=== PATIENT | female | born 1975 | race Two or more races ===

== ENCOUNTER 2019-05-01 06:45 | Day surgery (SDC) | payer BC ==
[2019-04-30 11:32] VITALS: BP 98/66
[~2019-05-01] VITALS: Ht 160 cm; Wt 63.0 kg
[~2019-05-01 06:45] MED LIST: ALPR2TAB5 PO; CYCL-259 PO; METR-90 PO; NAPR-685 PO; SERT100T32 PO; TERC20CR TP; TRAZ150T62 PO
[2019-05-01] MEDS ORDERED: LACTATED RINGERS 1,000 ML IV SCH (07:18)
[2019-05-01 07:20] VITALS: BP 98/66
[2019-05-01 07:28] LABS: HCG UR SG 1.019 (1.003-1.030)
[2019-05-01] MEDS ORDERED: FENTANYL PF 250 MCG/5ML ONE (08:09)
[2019-05-01] MEDS ORDERED: MIDAZOLAM 1 MG/ML, 2ML ONE (08:09)
[2019-05-01] MEDS ORDERED: THROMBIN 5,000 UNIT VIAL TP ONE ×2 (09:04→11:32)
[2019-05-01] MEDS ORDERED: BUPIVACAINE/PF 0.25% ONE (09:04)
[2019-05-01] MEDS ORDERED: GABAPENTIN 300 MG CAPSULE PO STA (09:05)
[2019-05-01] MEDS ORDERED: SCOPOLAMINE PATCH, 1.5MG PATCH.TD72 TD STA (09:05)
[2019-05-01] MEDS ORDERED: ACETAMINOPHEN 500 MG TABLET PO STA (09:05)
[2019-05-01] MEDS ORDERED: NEOMY/POLYMYXIN B GU IRR. 1 ML ONE (09:05)
[2019-05-01] MEDS ORDERED: ACETAMINOPHEN 500 MG TABLET ONE (09:06)
[2019-05-01] MEDS ORDERED: SCOPOLAMINE PATCH, 1.5MG PATCH.TD72 TD ONE (09:06)
[2019-05-01] MEDS ORDERED: GABAPENTIN 300 MG CAPSULE ONE (09:07)
[2019-05-01] MEDS ORDERED: INDIGO CARMINE 0.8%, 5ML ONE (10:23)
[2019-05-01] MEDS ORDERED: EPINEPHRINE 1 MG/ML, 1ML ONE (11:23)
[2019-05-01] MEDS ORDERED: MEPERIDINE/PF 25MG/ML,1ML ONE (11:54)
[2019-05-01] MEDS ORDERED: HYDROmorphone 1 MG/ML, 1ML INJ IV PRN (12:00)
[2019-05-01] MEDS ORDERED: KETOROLAC 30 MG/1 ML IV PRN (12:00)
[2019-05-01] MEDS ORDERED: OXYcodone 5 MG/5 ML ORAL.SOL UDC PO PRN (12:00)
[2019-05-01] MEDS ORDERED: PROMETHAZINE 25 MG/ML, 1ML IV PRN (12:00)
[2019-05-01] MEDS ORDERED: MEPERIDINE/PF 25MG/0.5ML IVPush PRN (12:00)
[2019-05-01] MEDS ORDERED: ONDANSETRON 2MG/ML, 2ML IVPush PRN (12:00)
[2019-05-01] MEDS ORDERED: hydrALAzine 20 MG/ML, 1ML IV PRN (12:00)
[2019-05-01] MEDS ORDERED: ALBUTEROL SULFATE 2.5 MG/3 ML NPPB PRN (12:00)
[2019-05-01] MEDS ORDERED: LABETALOL 5MG/ML, 20ML IV PRN (12:00)
[2019-05-01] MEDS ORDERED: METOCLOPRAMIDE 5 MG/ML, 2ML IV PRN (12:00)
[2019-05-01] MEDS ORDERED: FENTANYL PF 100 MCG/2ML IV PRN (12:00)
[2019-05-01] MEDS ORDERED: OXYcodone 5 MG/5 ML ORAL.SOL UDC ONE (12:02)
[2019-05-01] MEDS ORDERED: ONDANSETRON 2MG/ML, 2ML ONE (15:47)
[2019-05-01] MEDS ORDERED: DEXAMETHASONE 4 MG/ML, 1ML ONE (15:47)
[2019-05-01] MEDS ORDERED: PROPOFOL 10 MG/ML, 20ML ONE (15:47)
[2019-05-01] MEDS ORDERED: GLYCOPYRROLATE 0.2MG/1ML, 5ML ONE (15:47)
[2019-05-01] MEDS ORDERED: CEFAZOLIN 1,000 MG ONE (15:47)
[2019-05-01] MEDS ORDERED: ROCURONIUM 10MG/ML,5ML ONE (15:47)
[2019-05-01] MEDS ORDERED: SUCCINYLCHOLINE 20 MG/ML, 10ML ONE (15:47)
[2019-05-01] MEDS ORDERED: NEOSTIGMINE 1 MG/ML, 10ML ONE (15:47)
== END 2019-05-01 15:30 | disposition home or self-care (01) ==
LOC: OUT 06:45
PROVIDERS: ATTEND Specialist
DX: N80.0 Endometriosis of uterus (principal); N72 Inflammatory disease of cervix uteri; N92.0 Excessive and frequent menstruation with regular cycle; N94.6 Dysmenorrhea, unspecified; N39.3 Stress incontinence (female) (male); N32.81 Overactive bladder; J45.909 Unspecified asthma, uncomplicated; Z85.3 Personal history of malignant neoplasm of breast; Z87.01 Personal history of pneumonia (recurrent); Z98.890 Other specified postprocedural states; Z87.891 Personal history of nicotine dependence; Z09 Encounter for follow-up examination after completed treatment for conditions other than malignant neoplasm
CPT/HCPCS: 57288; 58571; 81025; 88307; C1771; J0171; J0330; J0690; J1100; J2175; J2250; J2405; J2704; J2710; J3010; J3490; J7120; S2900